=== PATIENT | female | born 1965 | race African-American/Black ===

== ENCOUNTER 2017-03-09 19:17 | Emergency (ER) | payer MEDICAID | END 2017-03-09 21:40 | disposition home or self-care (01) | LOC: D.ER 19:17 | DX: S83.91XA Sprain of unspecified site of right knee, initial encounter (principal); X50.1XXA Overexertion from prolonged static or awkward postures, initial encounter; Y93.89 Activity, other specified; Y92.22 Religious institution as the place of occurrence of the external cause; I10 Essential (primary) hypertension ==